=== PATIENT | female | born 1995 | race African-American/Black ===

== ENCOUNTER 2017-12-04 11:02 | Emergency (ER) | payer BC ==
[~2017-12-04] VITALS: Ht 162.6 cm; Wt 56.7 kg
[2017-12-04] MEDS ORDERED: IBUPROFEN600 MG ORAL (11:35)
[2017-12-04] MEDS ORDERED: AMOXICILLIN500 MG ORAL (11:35)
[2017-12-04 11:45] VITALS: BP 122/80
--- NOTE | 2017-12-04 14:16 | Emergency Room Report ---
History of Present Illness General Chief Complaint: Earache Source: Patient Present Illness HPI Patient present with complaints of pain to the right ear On further questioning it sounds to be a small palpable mass behind the ear that causes more the pain Patient also feels radiation up to the parietal area and also down to the neck and trapezius area on the same side denies any fevers Denies any posterior neck pain or photophobia denies any chest pain or short of breath denies any trauma pain is 5 out of 10 Patient History Past Medical History: see triage record Pertinent Family History: none Last Menstrual Period: 3-5 Now: No Reviewed Nursing Documentation: PMH: Agreed, PSxH: Agreed Nursing Documentation-PMH Past Medical History: No History, Except For Review of Systems All Other Systems: negative except mentioned in HPI Physical Exam Vital Signs Date Time Temp Pulse Resp B/P (MAP) Pulse Ox O2 Delivery O2 Flow Rate FiO2 12/04/17 11:13 98.5 90 16 122/80 98 Room Air 98.4 Sp02 EP Interpretation: reviewed, normal General Appearance: well appearing, no apparent distress Head: normocephalic, atraumatic Eyes: bilateral eye PERRL, bilateral eye EOMI ENT: other - Posterior lymphadenopathy on the right retroauricular area well- circumscribed, tympanic memory shows some mild erythema, no obvious chain of lymph nodes Neck: other - As above Respiratory: lungs clear Cardiovascular #1: regular rate, rhythm, no edema Gastrointestinal: non tender Musculoskeletal: normal inspection Neurologic: alert, oriented x3, responsive Skin: normal color, no rash Lymphatic: other - Posterior right-sided a regular lymph node as noted above. Fairly small pea-sized in nature Medical Decision Making Diagnostic Impression: Primary Impression: otitis media Additional Impression: lymphadenopathy ER Course Given the patient's findings she is placed on oral antibiotics Appears that the lymph node that is swollen causing most of the discomfort Given the mild erythema patient was covered with antibiotics as noted above And is otherwise stable for close follow-up I do not suspect any obvious mastoiditis there is no obvious bogginess or other pathology clinically seen, Last Vital Signs Date Time Temp Pulse Resp B/P (MAP) Pulse Ox O2 Delivery O2 Flow Rate FiO2 12/04/17 11:13 98.5 90 16 122/80 98 Room Air 98.4 Status: unchanged Disposition: HOME, SELF-CARE Condition: Stable Scripts Amoxicillin* (AMOXIL*) 500 Mg Capsule 500 MG ORAL THREE TIMES A DAY, #21 CAP Prov: JohnJosep laurent DO 12/04/17 Ibuprofen* (MOTRIN*) 600 Mg Tablet 600 MG ORAL Q8H Y for For Pain, #20 TAB 0 Refills Prov: Josep Smith DO 12/04/17 Referrals: NON PHYSICIAN (PCP) Departure Forms: Return to School Return to School On: Dec 06, 2017 School Release Restrictions: None Patient Instructions: Lymphadenopathy, Otitis Media, Adult Additional Instructions: Patient is provided with the discharge instructions notified to follow up with primary doctor in the next 2-3 days otherwise return to the er with any worsening symptoms. Please note that this report is being documented using Fixational technology. This can lead to erroneous entry secondary to incorrect interpretation by the dictating instrument. Josep Smith DO Dec 04, 2017 14:16
== END 2017-12-04 11:45 | disposition home or self-care (01) ==
LOC: EMR 11:30
DX: H66.90 Otitis media, unspecified, unspecified ear (principal); R59.1 Generalized enlarged lymph nodes
CPT/HCPCS: 99284